=== PATIENT | female | born 1970 | race African-American/Black ===

== ENCOUNTER 2017-01-16 13:31 | Emergency (ER) | payer MEDICAID ==
[~2017-01-16] VITALS: Ht 167.6 cm; Wt 70.0 kg
[2017-01-16] MEDS ORDERED: DIPHENHYDRAMINE 25MG CAPSULE PO ONE (15:15)
[2017-01-16] MEDS ORDERED: KETOROLAC 60MG/2ML VIAL IM ONE (15:15)
[2017-01-16] MEDS ORDERED: METHYLPREDNISOLONE SOD SUCC 40 MG/ML VIAL IM ONE (15:15)
[2017-01-16 15:35] VITALS: BP 110/66
== END 2017-01-16 17:22 | disposition home or self-care (01) ==
LOC: ER 15:40
DX: M25.511 Pain in right shoulder (principal); M25.521 Pain in right elbow; M79.7 Fibromyalgia
CPT/HCPCS: 73030; 73080; 81025; 96372; 99284; J1885; J2920; Z7610; Q0163